=== PATIENT | male | born 1945 | race American Indian/Alaskan Native ===

== ENCOUNTER 2017-04-20 15:31 | Emergency (ER) | payer MEDICARE ==
--- NOTE | 2017-04-20 15:52 | ED PDOC ---
Arrival/HPI - General Time Seen by Provider: 04/20/17 15:51 Historian: Patient - History of Present Illness Narrative History of Present Illness (Text): 04/20/17 15:51 This 71 yo male presents to this ED c/o right lower molar tooth infection since last night. Patient stated his face feels swelling. Patient admits similar symptoms in the past. Denies fever, dysphagia, wheezing, or abnormal gait. Time/Duration: Other (see hpi) Context: Home Past Medical History - Provider Review Nursing Documentation Reviewed: Yes Family/Social History - Physician Review Nursing Documentation Reviewed: Yes Family/Social History: Other (noncontributory) Allergies/Home Meds Allergies/Adverse Reactions: Allergies No Known Allergies Allergy (Verified 04/20/17 16:24) Review of Systems - Review of Systems Constitutional: Normal. absent: Fatigue, Weight Change, Fevers Eyes: Normal ENT: Other (toothache). absent: Sore Throat, Rhinorrhea Respiratory: Normal. absent: SOB, Cough Cardiovascular: Normal. absent: Chest Pain Gastrointestinal: Normal. absent: Abdominal Pain, Nausea, Vomiting Genitourinary Male: Normal Musculoskeletal: Normal. absent: Back Pain Skin: Normal Neurological: Normal. absent: Headache, Dizziness, Focal Weakness, Gait Changes , Speech Changes, Facial Droop, Disequilibrium Endocrine: Normal Hemo/Lymphatic: Normal Psychiatric: Normal Physical Exam Vital Signs Temp Pulse Resp BP Pulse Ox 04/20/17 15:31 98.9 F 55 L 18 145/78 100 Temperature: Afebrile Blood Pressure: Normal Pulse: Regular Respiratory Rate: Normal Appearance: Positive for: Well-Appearing, Non-Toxic, Comfortable Pain Distress: None Mental Status: Positive for: Alert and Oriented X 3 - Systems Exam Head: Present: Atraumatic, Normocephalic, Other (No facial swelling or erythema) Pupils: Present: PERRL Extroacular Muscles: Present: EOMI Conjunctiva: Present: Normal Ears: Present: Normal, NORMAL TM, Normal Canal. No: Erythema, TM Bulging, Fluid , TM Perf Mouth: Present: Moist Mucous Membranes, Normal Lips, Normal Tounge, Other ((+) cavities on Tooth #30, and 31. No dental abscess. Gum is mild swelling, and tender on palpation). No: Drooling, Trismus Pharnyx: Present: Normal. No: ERYTHEMA, EXUDATE, TONSILS ENLARGED Neck: Present: Normal Range of Motion Respiratory/Chest: Present: Clear to Auscultation, Good Air Exchange. No: Respiratory Distress, Accessory Muscle Use, Wheezes, Retracting, Rhonchi Cardiovascular: Present: Regular Rate and Rhythm, Normal S1, S2. No: Murmurs Upper Extremity: Present: Normal Inspection, Normal ROM Lower Extremity: Present: Normal Inspection, Normal ROM Neurological: Present: GCS=15, CN II-XII Intact, Speech Normal, Motor Func Grossly Intact, Normal Sensory Function, Normal Cerebellar Funct, Gait Normal Skin: Present: Warm, Dry, Normal Color. No: Rashes Psychiatric: Present: Alert, Oriented x 3, Normal Insight, Normal Concentration Medical Decision Making ED Course and Treatment: 04/20/17 16:22 Re-evaluation. Patient feels better. Discussed results and plan with patient who expresses understanding. All questions answered and there is agreement with the plan to discharge home with instructions. Patient stable for discharge. Return if symptoms persist or worsen Re-evaluation Time: 16:22 Reassessment Condition: Re-examined, Improved Disposition/Present on Arrival - Present on Arrival Any Indicators Present on Arrival: No History of DVT/PE: No History of Uncontrolled Diabetes: No Urinary Catheter: No History of Decub. Ulcer: No - Disposition Have Diagnosis and Disposition been Completed?: Yes Diagnosis: Pain due to dental caries Disposition: HOME/ ROUTINE Disposition Time: 16:22 Patient Plan: Discharge Patient Problems: Current Active Problems Problem Status Onset Pain due to dental caries Acute Condition: GOOD Discharge Instructions (ExitCare): Dental Caries (ED), Toothache (ED) Additional Instructions: Call private doctor for follow up visit in 1-2 days. Take medication as instructed. Return to emergency if symptoms worsen. Prescriptions: Amoxicillin 500 mg PO TID #30 tablet Chlorhexidine 0.12% [Peridex] 15 ml PO BID #1 bottle Ibuprofen [Motrin] 600 mg PO Q8 PRN #12 tab PRN Reason: Pain, Severe (8-10) Referrals: Oumar Smart MD [Primary Care Provider] - Follow up with primary Forms: [employer] (Yoruba)
[2017-04-20 15:58] VITALS: RESP 18; TEMP 98.9
[2017-04-20 17:18] VITALS: BP 146/74; PULSE 61; O2SAT 98
== END 2017-04-20 17:00 | disposition home or self-care (01) ==
LOC: ED 15:31
DX: K02.9 Dental caries, unspecified (principal); K08.89 Other specified disorders of teeth and supporting structures